=== PATIENT | female | born 1960 | race Caucasian/White ===

== ENCOUNTER 2017-02-25 00:59 | Emergency (ER) | payer OTHER ==
--- NOTE | 2017-02-25 06:01 | ER ---
ADMIT: 02/25/2017 RM/LOC: ER [facility] MR#: [id number] [place], [place] [id number] ANTON[address] ACOSTA [address] [place] [address] Emergency Room Report SEX: F AGE: 56 : 1960 DATE: 02/25/2017 The patient is a 56-year-old female, smoker with hypothyroidism, and mitral valve prolapse. Admits to nonproductive cough for the past month, and complains of substernal chest pressure without eructations, nausea, diaphoresis or shortness of breath. States the pain does go to her left shoulder, neck, and back. Exam remarkable for nontoxic, afebrile female with otherwise stable vital signs and unremarkable exam. EKG shows sinus rhythm without ST-T or Q- wave change. Chest x-ray negative. CTA chest negative for pulmonary emboli; however, interstitial infiltrate noted. BN peptide 150, troponin on arrival, and 2-hour delta less than 0.015. Normal CBC, CMP, lipase, lactic acid, and CRP. The patient was given Levaquin 500 mg p.o. in department and daily for the next 6 days. Guaifenesin with codeine as needed, dispensed 120 mL, one refill. Work release. Follow up Dr. Renae next week. Discontinue smoking. Russ Bunn MD/ aaronl JOB #: [id number] CC: Russ Bunn MD, Attending Physician Jin Renae MD, Family Physician Jin Renae MD
== END 2017-02-25 05:10 | disposition home or self-care (01) ==
LOC: ER 00:59
DX: J18.9 Pneumonia, unspecified organism (principal); R07.9 Chest pain, unspecified; F17.210 Nicotine dependence, cigarettes, uncomplicated; Z90.710 Acquired absence of both cervix and uterus; Z88.2 Allergy status to sulfonamides; Z79.899 Other long term (current) drug therapy